=== PATIENT | female | born 1965 | race Caucasian/White ===

== ENCOUNTER 2017-04-16 10:37 | Emergency (ER) | payer OTHER ==
[~2017-04-16] VITALS: Ht 160 cm; Wt 68.0 kg
[2017-04-16 10:39] VITALS: Ht 160 cm; Wt 68.0 kg
[2017-04-16] MEDS ORDERED: HYDROCODONE/APAP (5/325) TAB PO ONE (11:00)
[2017-04-16] MEDS ORDERED: IBUPROFEN 800 MG TAB PO ONE (11:00)
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
[2017-04-16] MEDS ORDERED: IBUP800T25 PO (12:32)
[2017-04-16] MEDS ORDERED: METH750T93 PO (12:32)
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
== END 2017-04-16 13:03 | disposition home or self-care (01) ==
LOC: E/R 10:37
DX: S20.212A Contusion of left front wall of thorax, initial encounter (principal); V49.40XA Driver injured in collision with unspecified motor vehicles in traffic accident, initial encounter
CPT/HCPCS: 71010; 93005; Z7610